=== PATIENT | female | born 1935 | race Asian ===

== ENCOUNTER 2018-11-08 06:47 | Day surgery (SDC) | payer MEDICARE, OTHER ==
[2018-11-08] MEDS ORDERED: FENTAnyl 50 MCG/ML VIAL (09:03)
[2018-11-08] MEDS ORDERED: MIDAZOLAM 1 MG/ML 2 ML INJ (09:03)
== END 2018-11-08 12:00 | disposition home or self-care (01) ==
LOC: GIL 06:47
DX: Z12.11 Encounter for screening for malignant neoplasm of colon (principal); K57.30 Diverticulosis of large intestine without perforation or abscess without bleeding
CPT/HCPCS: G0121